=== PATIENT | male | born 1970 | race Caucasian/White ===

== ENCOUNTER 2019-10-01 16:19 | Emergency (ER) | payer OTHER ==
[2019-10-01] MEDS ORDERED: Adacel (T-DAP) 0.5 ML SYRINGE ONE (16:40)
== END 2019-10-01 16:45 | disposition home or self-care (01) ==
LOC: BURERS 16:19
DX: S91.332A Puncture wound without foreign body, left foot, initial encounter (principal); W22.8XXA Striking against or struck by other objects, initial encounter
CPT/HCPCS: 90471; 90715